=== PATIENT | male | born 1940 | race Caucasian/White ===

== ENCOUNTER 2018-07-10 09:27 | Emergency (ER) | payer OTHER ==
[~2018-07-10] VITALS: Ht 172.7 cm; Wt 70.3 kg
[2018-07-10] MEDS ORDERED: BENICAR20 MG PO (09:54)
[2018-07-10] MEDS ORDERED: CENTRUM SILVER1 EAC2 PO (09:54)
[2018-07-10] MEDS ORDERED: ASPIR 8181 M1 PO (09:55)
[2018-07-10 10:15] LABS: URINE BILIRUBIN NEGATIVE (Negative); URINE BLOOD NEGATIVE (Negative); URINE CLARITY CLEAR; URINE COLOR YELLOW; URINE GLUCOSE-RANDOM* NEGATIVE (Negative); URINE KETONES NEGATIVE (Negative); URINE LEUKOCYTES-REFLEX TRACE (Negative); URINE NITRITE-REFLEX NEGATIVE (Negative); URINE PROTEIN (DIPSTICK) NEGATIVE (Negative); URINE UROBILINOGEN 0.2 E.U./dl (0.2-1.0)
[2018-07-10 10:26] LABS: ANION GAP 11 mmol/L (7-16); BUN 17 mg/dL (7-18); CALCIUM 9.5 mg/dL (8.5-10.1); CHLORIDE 98 mmol/L (98-107); CO2 20 mmol/L (21-32); CREATININE 1.2 mg/dL (0.7-1.3); GLUCOSE 116 mg/dL (74-106); POTASSIUM 4.4 mmol/L (3.5-5.1); SODIUM 129 mmol/L (136-145)
[2018-07-10 10:32] LABS: ABSOLUTE NEUTROPHILS 4.3 thou/uL (1.4-8.2); BASOPHILS 0.3 % (0.0-2.0); EOSINOPHILS 1.1 % (0.0-3.0); HEMATOCRIT 36.6 % (42.0-52.0); HEMOGLOBIN 13.1 gm/dL (14.0-18.0); LYMPHOCYTES 14.5 % (24.0-44.0); MCH 33.3 pg (26.0-34.0); MCHC 35.9 g/dL (28.0-37.0); MCV 92.6 fL (80.0-100.0); MONOCYTES 11.2 % (1.0-8.0); PLATELET COUNT 172 thou/uL (150-400); POLYS 72.9 % (36.0-66.0); RBC 3.95 mil/uL (4.50-6.00); RDW 12.3 % (10.5-14.5); WBC 5.9 thou/uL (4.0-11.0)
[2018-07-10 10:36] LABS: TROPONIN-I <0.06 ng/mL (<0.06)
[2018-07-10 13:33] VITALS: BP 168/84
== END 2018-07-10 13:33 | disposition home or self-care (01) ==
LOC: ER 09:27
PROVIDERS: Emergency Medicine
DX: E87.1 Hypo-osmolality and hyponatremia (principal); R41.0 Disorientation, unspecified; I10 Essential (primary) hypertension; F17.210 Nicotine dependence, cigarettes, uncomplicated

== ENCOUNTER 2020-02-14 13:05 | Emergency (ER) | payer OTHER ==
[~2020-02-14] VITALS: Ht 172.7 cm; Wt 70.3 kg
[~2020-02-14 13:05] MED LIST: ASPIR 8181 M1 PO; BENICAR20 MG PO; CENTRUM SILVER1 EAC2 PO; CLONIDINE0.1 PO
[2020-02-14 14:24] VITALS: BP 134/67
== END 2020-02-14 14:24 | disposition home or self-care (01) ==
LOC: ER 13:05
DX: F45.8 Other somatoform disorders (principal); I10 Essential (primary) hypertension; F17.210 Nicotine dependence, cigarettes, uncomplicated; Z79.82 Long term (current) use of aspirin; Z79.899 Other long term (current) drug therapy